=== PATIENT | female | born 1975 | race Caucasian/White ===

== ENCOUNTER 2022-12-18 20:01 | Emergency (ER) | payer SELFPAY ==
[~2022-12-18] VITALS: Ht 160 cm; Wt 103.9 kg
[2022-12-18] MEDS ORDERED: LIDOCAINE HCL/PF 1% 10 MG/ML 5ML VIAL INFIL ONE (22:00)
[2022-12-18] MEDS ORDERED: MORPHINE SULFATE 4 MG/ML CPJ (NOT FOR IM USE) IV ONE (22:00)
[2022-12-19] MEDS ORDERED: MORPHINE SULFATE 4 MG/ML CPJ (NOT FOR IM USE) IV ONE (00:30)
[2022-12-19 00:51] VITALS: BP 155/69
[2022-12-19] MEDS ORDERED: LIDO20SO25 PR (01:17)
[2022-12-19] MEDS ORDERED: HYDR-4001 MT (01:17)
[2022-12-19] MEDS ORDERED: ONDANSETRON HCL 4MG/2ML INJ IV ONE (01:30)
== END 2022-12-19 02:50 | disposition home or self-care (01) ==
LOC: ER 20:01
DX: K64.9 Unspecified hemorrhoids (principal); E11.9 Type 2 diabetes mellitus without complications; Z98.890 Other specified postprocedural states
CPT/HCPCS: 96374; 96375; 96376; 99284; J2270; J2405; J3490